=== PATIENT | male | born 1985 | race African-American/Black ===

== ENCOUNTER 2019-06-24 12:48 | Emergency (ER) | payer SELFPAY ==
[~2019-06-24] VITALS: Ht 180.3 cm; Wt 70.4 kg
[2019-06-24 13:20] VITALS: BP 160/78
--- NOTE | 2019-06-24 13:39 | PHYS DOC ---
Past Medical History Past Medical History: No Pertinent History Past Surgical History: No Surgical History Smoking Status: Never Smoker Alcohol Use: None General Adult EDM: Chief Complaint: EYE PROBLEMS HPI: HPI: Patient is a 33 year old male who presents with patient states a week ago he had his gloves on at work and he went to rub his eye and he thinks he may have gotten something in his eye but is unsure. He states he does not have any eye pain but is right eye is swollen and reddened. He states it does itch at times and when he wakes up it will be crusted over sometimes. Patient states he is unsure what happened. He states that he noticed today that it is slightly blurred when looking out the right eye. Review of Systems: Review of Systems: [] Eyes: change in visual acuity, redness. [] Heart Score: Risk Factors: Risk Factors: DM, Current or recent (<one month) smoker, HTN, HLP, family history of CAD, obesity. Risk Scores: Score 0 - 3: 2.5% MACE over next 6 weeks - Discharge Home Score 4 - 6: 20.3% MACE over next 6 weeks - Admit for Clinical Observation Score 7 - 10: 72.7% MACE over next 6 weeks - Early Invasive Strategies Allergies: Allergies: Allergies Coded Allergies Type Severity Reaction Last Updated Verified No Known Drug Allergies 06/24/19 No Physical Exam: PE: Constitutional: Well developed, well nourished, no acute distress, non-toxic appearance. [] HENT: Normocephalic, atraumatic, bilateral external ears normal, oropharynx moist, no oral exudates, nose normal. [] Eyes: PERRLA, EOMI, conjunctiva red, no discharge. [] Neck: Normal range of motion, no tenderness, supple, no stridor. [] Cardiovascular:Heart rate regular rhythm, no murmur [] Lungs & Thorax: Bilateral breath sounds clear to auscultation [] Abdomen: Bowel sounds normal, soft, no tenderness, no masses, no pulsatile masses. [] Skin: Warm, dry, no erythema, no rash. [] Back: No tenderness, no CVA tenderness. [] Extremities: No tenderness, no cyanosis, no clubbing, ROM intact, no edema. [] Neurologic: Alert and oriented X 3, normal motor function, normal sensory function, no focal deficits noted. [] Psychologic: Affect normal, judgement normal, mood normal. [] Current Patient Data: Vital Signs: Vital Signs Date Time Temp Pulse Resp B/P (MAP) Pulse Ox O2 Delivery O2 Flow Rate FiO2 06/24/19 13:20 97.2 77 16 160/78 (105) 97 Room Air 97.2 EKG: EKG: [] Radiology/Procedures: Radiology/Procedures: [] Course & Med Decision Making: Course & Med Decision Making Pertinent Labs and Imaging studies reviewed. (See chart for details) Alert and oriented. Speaks in full clear sentences. Ambulatory with a steady gait. PERRLA. Sclera is reddened. No discharge is seen from the eye. Florescine test done with 1 strip and tetracaine under a black light there was no cornea abrasion and no staining at any part of the eye. With eyelid flipped up there is no foreign body seen in the eye. No extra ocular eye movement pain. [] Dragon Disclaimer: Dragon Disclaimer: This electronic medical record was generated, in whole or in part, using a voice recognition dictation system. Departure Departure Impression: Primary Impression: Conjunctivitis Qualified Codes: H10.31 - Unspecified acute conjunctivitis, right eye Disposition: HOME, SELF-CARE Condition: STABLE Referrals: NO PCP (PCP) Patient Instructions: Conjunctivitis (Viral and Bacterial) Additional Instructions: Follow up with eye doctor if needed. [place] eye is very contagious. Use only these antibiotic eye drops in your eye. Scripts Bacitracin/Polymyxin B Sulfate (BACITRACIN-POLYMYXIN EYE OINT) 3.5 Gm Oint...g. 1 HAYLEY OD BID for 10 Days, #3.5 GM 0 Refills Prov: JATIN MELISSA APRN 06/24/19 JATIN MELISSA APRN June 24, 2019 13:39
[2019-06-24] MEDS ORDERED: TETRACAINE 0.5% OPHTH SOLUTION 4ML BOTTLE. OD ONE (13:45)
[2019-06-24] MEDS ORDERED: FLUORESCEIN OPHTH TEST STRIP. OD ONE (13:45)
[2019-06-24] MEDS ORDERED: BACI3.5O4 OD (14:18)
== END 2019-06-24 14:32 | disposition home or self-care (01) ==
LOC: ER 12:48
DX: H10.31 Unspecified acute conjunctivitis, right eye (principal)
CPT/HCPCS: 99283